=== PATIENT | female | born 1960 | race Native Hawaiian/Other Pacific Islander ===

== ENCOUNTER 2018-11-28 11:23 | Outpatient (CLI) | payer OTHER ==
[2018-11-28 12:11] LABS: POTASSIUM 3.9 mmol/L (3.6-5.2)
[2018-11-28 12:14] LABS: PLATELET COUNT 250 K/uL (152-353)
== END 2018-11-28 19:46 | disposition home or self-care (01) ==
LOC: LABW 11:23
PROVIDERS: Internal Medicine
DX: Z01.818 Encounter for other preprocedural examination (principal); E11.9 Type 2 diabetes mellitus without complications; R82.998 Other abnormal findings in urine
CPT/HCPCS: 36415; 80053; 81000; 83036; 85027; 87077; 87086; 87088; 87186